=== PATIENT | male | born 1945 | race Caucasian/White ===

== ENCOUNTER → 2018-05-11 12:39 | Outpatient (CLI) | payer MEDICARE, OTHER, SELFPAY ==
--- NOTE | 2018-05-11 | DI.US.S_ITS ---
PROCEDURE: US CAROTID DOPPLER BI INDICATIONS: DIZZINESS TECHNIQUE: Color and pulse Doppler interrogation was performed of both carotid systems, with image documentation and velocity measurements. COMPARISON: [facility], , CAROTID ARTERY DOPPLER BILAT, 07/23/2011, 16:19. FINDINGS: Stenosis calculations are based on SRU (Society of Radiologists in Ultrasound) criteria. Right side: Brachial blood pressure: 122/83 mm Hg. Common carotid artery peak systolic velocity: 89 cm/sec. Internal carotid artery peak systolic velocity: 72 cm/sec. Internal carotid artery end diastolic velocity: 12 cm/sec. External carotid artery peak systolic velocity: 107 cm/sec. ICA/CCA peak systolic ratio: 20. Joshua scale imaging description: Minimal plaque. Percent internal carotid artery stenosis: Less than 50%. Vertebral artery: Flow direction is antegrade. Left side: Brachial blood pressure: 127/84 mm Hg. Common carotid artery peak systolic velocity: 92 cm/sec. Internal carotid artery peak systolic velocity: 72 cm/sec. Internal carotid artery end diastolic velocity: 28 cm/sec. External carotid artery peak systolic velocity: 83 cm/sec. ICA/CCA peak systolic ratio: 0.8. Joshua scale imaging description: Minimal plaque Percent internal carotid artery stenosis: Less than 50%. Vertebral artery: Flow direction is antegrade. IMPRESSION: Less than 50% bilateral internal carotid artery stenosis. Dictated by: Jesus Batres [facility] Interpreted: Aries Brantley MD on 05/11/2018 at 14:07 Approved by: Aries Brantley M.D. on 05/11/2018 at 15:16
== END ==
PROVIDERS: Family Provider Family Medicine; PCP Family Medicine; Visit Provider Family Medicine
DX: I65.23 Occlusion and stenosis of bilateral carotid arteries (principal); R42 Dizziness and giddiness
CPT/HCPCS: 93880

== ENCOUNTER → 2018-10-08 14:59 | Outpatient (REF) | payer MEDICARE, OTHER, SELFPAY ==
[2018-10-08 15:25] LABS: Influenza A and B by PCR Rapid Negative (Negative)
== END ==
LOC: LAB 14:59
PROVIDERS: Family Provider Family Medicine; PCP Family Medicine; Visit Provider Family Medicine
DX: R05 Cough (principal); J02.9 Acute pharyngitis, unspecified; R52 Pain, unspecified
CPT/HCPCS: 87400

== ENCOUNTER → 2019-01-04 17:44 | Outpatient (REF) | payer MEDICARE, OTHER, SELFPAY | LOC: LAB 17:44 | PROVIDERS: Family Provider Family Medicine; PCP Family Medicine; Visit Provider Dermatology | DX: L24.4 Irritant contact dermatitis due to drugs in contact with skin (principal) | CPT/HCPCS: 87070; 87075; 87077; 87186; 87205 ==

== ENCOUNTER → 2019-06-28 10:16 | Outpatient (CLI) | payer MEDICARE, OTHER, SELFPAY ==
--- NOTE | 2019-06-28 | DI.US.S_ITS ---
PROCEDURE: US RENAL COMPLETE INDICATIONS: GROSS HEMATURIA TECHNIQUE: Real-time scanning was performed of the kidneys and bladder, with image documentation. COMPARISON: [facility], CT, IVP (ABD & PEL WWO CONTRAST), 07/07/2017, 14:17. [facility], US, RENAL COMPLETE, 11/26/2007, 10:36. FINDINGS: Kidneys: Kidneys are normal in size. Right kidney measures 10.5 cm long; left kidney measures 11 cm long. Right renal cortical thickness is 1.6 cm; left renal cortical thickness is 1.7 cm. Renal cortical echotexture is normal. No hydronephrosis or nephrolithiasis. No suspicious solid mass lesions. Bladder: Pre-void bladder volume is 77 mL. Post-void residual is 3 mL. Pre-void images demonstrate no intraluminal masses or stones. On pre-void images, both ureteral jets are noted with color Doppler interrogation. (Of note, ureteral jets may not be detectable in up to 25% of cases due to insufficient differences in specific gravity between ureteral and bladder urine). Miscellaneous: No free pelvic fluid. The prostate gland is prominent, with an estimated volume of 113 cc. This study is limited by body habitus. IMPRESSION: No imaging explanation is found in the patient's presenting history of gross hematuria. For further evaluation of the patient's presenting history of hematuria, please consider a dedicated hematuria protocol CT without and with contrast (assuming that there is no contraindication). Dictated by: Marin Wray M.D. on 06/28/2019 at 11:18 Approved by: Marin Wray M.D. on 06/28/2019 at 11:19
== END ==
PROVIDERS: PCP Family Medicine; Visit Provider Family Medicine
DX: R31.0 Gross hematuria (principal)
CPT/HCPCS: 76770

== ENCOUNTER → 2019-09-30 09:37 | Outpatient (CLI) | payer MEDICARE, OTHER, SELFPAY ==
--- NOTE | 2019-09-30 | DI.RAD.S_ITS ---
PROCEDURE: XR CERVICAL SPINE 2V OR 3V INDICATIONS: neck pain TECHNIQUE: 3 view(s) of the cervical spine were acquired. COMPARISON: None. FINDINGS: Bones: On the lateral view, the cervicothoracic junction is adequately visualized and the alignment through this region is within normal limits. The vertebral body heights and prevertebral soft tissues are within normal limits throughout the cervical spine without evidence to suggest acute compression fracture. The bone mineralization is within normal limits. Straightening of the normal cervical lordosis is evident. There is grade 1 anterolisthesis of C3 on C4 by approximately 1-2 mm. Mild to moderate multilevel disc height loss and facet degenerative changes are identified throughout the cervical spine. Soft tissues: No prevertebral soft tissue swelling. The imaged overlying soft tissues of the neck are within normal limits. IMPRESSION: 1. Mild/moderate degenerative changes of the cervical spine. 2. Grade 1 spondylolisthesis at C3-4. Dictated by: Sarkis Pastrana M.D. on 09/30/2019 at 9:21 Approved by: Sarkis Pastrana M.D. on 09/30/2019 at 9:22
--- NOTE | 2019-09-30 | DI.RAD.S_ITS ---
PROCEDURE: XR SHOULDER LT MIN 2V INDICATIONS: shoulder pain TECHNIQUE: 3 views of the shoulder were acquired. COMPARISON: None. FINDINGS: Bones: Moderate to severe degenerative changes of the glenohumeral and acromioclavicular joints are present. Prominent for a marginal osteophyte involving the humeral head is noted. No acute fractures or dislocations are present. No suspicious osseous lesions are identified. Soft tissues: No suspicious soft tissue calcifications. IMPRESSION: [id number] degenerative changes of the left shoulder joints. Dictated by: Sarkis Pastrana M.D. on 09/30/2019 at 9:22 Approved by: Sarkis Pastrana M.D. on 09/30/2019 at 9:25
== END ==
PROVIDERS: PCP Family Medicine; Visit Provider Family Medicine
DX: M54.2 Cervicalgia (principal); M47.812 Spondylosis without myelopathy or radiculopathy, cervical region; M43.12 Spondylolisthesis, cervical region; M25.512 Pain in left shoulder; M25.712 Osteophyte, left shoulder
CPT/HCPCS: 72040; 73030

== ENCOUNTER → 2020-08-27 08:32 | Outpatient (CLI) | payer MEDICARE, OTHER, SELFPAY ==
[2020-08-28 09:46] LABS: COVID19 Sendout Not Detected (Not Detect)
== END ==
PROVIDERS: PCP Family Medicine; Visit Provider Nurse Practitioner
DX: Z11.59 Encounter for screening for other viral diseases (principal)
CPT/HCPCS: 87635

== ENCOUNTER 2020-08-30 07:20 | Day surgery (SDC) | payer OTHER, SELFPAY ==
--- NOTE | 2020-08-30 | PATH_ITS ---
[facility] Accession Number: [id number] . 01 Material submitted: . PART A: colon - DESCENDING COLON POLYP PART B: colon - SIGMOID POLYP PART C: rectum - RECTAL POLYP . 01 Clinical history: . SDC . 02 Diagnosis: A. Descending Colon Polyp, Biopsy: Hyperplastic polyp. . B. Sigmoid Colon Polyp, Biopsy: Hyperplastic polyp. . C. Rectal Polyp, Biopsy: Hyperplastic polyp. [facility] [place] 09/01/2020 1506 Local . 02 Electronically signed: . Barrington Burns MD, PhD, Pathologist NPI- [id number] . 01 Gross description: . A. Specimen A is received in formalin, labeled descending colon polyp and consists of a 0.3 x 0.3 x 0.2 cm alvarenga-pink fragment of soft tissue, which is entirely submitted in cassette A1. B. Specimen B is received in formalin, labeled sigmoid polyp and consists of two alvarenga-pink fragments of soft tissue, measuring 0.3 x 0.3 x 0.2 cm in aggregate. The specimen is entirely submitted in cassette B1. C. Specimen C is received in formalin, labeled rectal polyp and consists of two alvarenga fragments of soft tissue, measuring 0.4 x 0.3 x 0.2 cm in aggregate. The specimen is entirely submitted in cassette C1. ([id number]) /COUNTS INCLUDE 234 BEDS AT THE [facility] 08/31/2020 1521 Local . 02 Pathologist provided ICD-10: K63.5, K62.1 . 02 CPT . 125572, 900871, 585958 Performed at: [address] [facility] [address], [place], [place] [id number] MD Hao Jacobsen MD Phone: [phone] Performed at: 02 [facility] [id number] [place] [id number] MD Omayra Crespo MD Phone: [phone]
[2020-08-30 07:41] VITALS: BP 153/89; PULSE 88; RESP 16; TEMP 36.9; O2SAT 96
--- NOTE | 2020-08-30 07:49 | PM.HP.1 ---
History of Present Illness History of Present Illness Date Patient Seen: 08/30/20 Chief complaint: SDC Narrative: 75-year-old male with a history of colon cancer in 1988 who is here for surveillance. His last colonoscopy was in 2016 and recommendations were to perform 3 years after. Patient History Medical History (Updated 08/30/20 @ 07:09 by Donna Santiago RN) Diabetes (Acute) GERD (gastroesophageal reflux disease) (Acute) History of colon cancer (Acute ~1988) Hyperlipidemia (Acute) Surgical History (Updated 08/30/20 @ 07:09 by Donna Santiago RN) History of colon resection (Acute) History of colonoscopy with polypectomy (Acute) History of esophagogastroduodenoscopy (EGD) (Acute) History of total knee arthroplasty (Acute) Meds Home Medications and Allergies Home Medications Medication Instructions Recorded Confirmed Type CHOLECALCIFEROL (VITAMIN D) 1,000 iu PO DAILY #0 08/28/12 08/30/20 History MULTIVITAMIN (#ATOXIMETIN-B) 1 cap PO DAILY #0 08/28/12 History rosuvastatin [Crestor] 40 mg PO QDAY #0 08/28/12 08/30/20 History aspirin [Aspirin Low Dose] 81 mg PO DAILY 08/30/20 08/30/20 History azelastine 1 - 2 spray INTRANASAL QID PRN 08/30/20 08/30/20 History cholecalciferol (vitamin D3) 25 mcg PO DAILY 08/30/20 08/30/20 History [Vitamin D3] gabapentin 300 mg PO DAILY 08/30/20 08/30/20 History loratadine [Allerclear] 10 mg PO DAILY PRN 08/30/20 08/30/20 History metformin 500 mg PO BID 08/30/20 08/30/20 History omega 5-dyr-uvg-fish oil [Fish Oil] 1 cap PO DAILY 08/30/20 08/30/20 History pantoprazole 40 mg PO DAILY 08/30/20 08/30/20 History zolpidem 10 mg PO DAILY PRN 08/30/20 08/30/20 History Allergies Allergy/AdvReac Type Severity Reaction Status Date / Time codeine [CODEINE] Allergy Intermediate N&V Unverified 08/30/20 07:35 Exam Narrative Exam Narrative: General: Patient is obese, not in apparent distress Cardiovascular: Regular rate and rhythm, no murmurs, rubs, or gallops; no evidence of edema; no palpable abdominal aortic aneurysm Gastrointestinal: Normoactive bowel sounds, soft, nontender, nondistended, no rebound tenderness, no hepatosplenomegaly, no evidence of hernia Assessment & Plan Assessment & Plan narrative: 75-year-old male here for colon cancer surveillance. History of colon cancer in 1988 Regarding the procedure(s), the risks and potential complications, benefits, and alternatives (including not doing the procedure) were discussed with the patient. The risks include but are not limited to bleeding, splenic injury, infection, perforation which may require surgical intervention, missed lesions, and adverse reactions to sedative medicines. After a question and answer period, the patient agreed to proceed with the procedure(s) and gives informed consent.
[2020-08-30] MEDS: SODIUM CHLORIDE 0.9% 1,000 ML 70 ML IV (07:50)
[2020-08-30 07:51] VITALS: BMI 32.4
[2020-08-30] MEDS: MIDAZOLAM 5 MG/5 ML VIAL IV (08:15)
[2020-08-30] MEDS: fentaNYL 250 MCG/5 ML INJ IV (08:15)
--- NOTE | 2020-08-30 08:32 | PM.OP.ENDO ---
Operative Date/Time/Diagnoses Date of procedure: 08/30/20 Procedure Notes Procedure in detail: Surgeon: Man Dee MD Procedure: Colonoscopy with polypectomy Preoperative diagnosis: History of colon cancer in 1988 and colon polyps Postoperative diagnosis: End-to-side ileocolonic anastomosis, 3 colon polyp status post polypectomy, sigmoid diverticulosis, grade 2 internal hemorrhoids Medications: Conscious sedation using 4 mg IV of Midazolam and 100 mcg IV of Fentanyl Preanesthesia Assessment An H and P was performed/updated and the Px?s ASA class is 2. The procedure was discussed in detail with the patient. The potential risks and complications including infection, bleeding, missed lesions, perforation, need for surgery in case of perforation, prolonged hospital stay, and were explained. A brief question and answer period was allotted and once all questions were answered, informed consent was obtained. The patient was brought back to the procedure room and placed on standard monitoring. The patient?s vital signs were monitored continuously throughout the entire procedure. Prior to starting, a timeout was performed to confirm the patient?s identity, allergies, medications, and procedure. Procedure in detail The patient was placed in left lateral decubitus position and once adequate sedation was obtained a ROOPA was performed. The digital rectal examination did not reveal any palpable lesions. The tip of the colonoscope was placed in the anal canal and advanced without difficulty all the way to the ileocolonic anastomosis in the ascending colon. Intubation of the neoterminal ileum was performed which revealed no abnormalities. The colonoscope was then brought back to the anastomosis and careful examination of all ro of the colon was performed with irrigation of any residual stool. In the descending colon, a 2 mm sessile polyp was seen and removed by means of cold Jumbo forceps. Resection and retrieval was complete with minimal bleeding. In the sigmoid colon, a 2 mm sessile polyp was seen and removed by means of cold Jumbo forceps. Resection and retrieval was complete with minimal bleeding In the sigmoid colon, there was note of multiple medium-sized diverticula In the rectum, a 2 mm sessile polyp was seen and removed by means of cold Jumbo forceps. Resection and retrieval was complete with minimal bleeding Retroflexion was performed in the rectum which revealed grade 2 internal hemorrhoids. The patient tolerated the procedure well and will be brought back to the recovery area to be discharged once criteria are met. The prep was judged to be good and adequate to identify polyps less than 5 mm. The withdrawal time was 7 minutes. The total physician intraservice time was 12 minutes. Complications There were no complications and estimated blood loss was minimal. Recommendations: Resume previous diet Continue outPx medications Follow up pathology results Repeat colonoscopy in 3 or 5 years depending on pathology results. Call our office ([facility]) to schedule follow-up with An emergency contact number was given to the patient for any complications related to the procedure
[2020-08-30 08:35] VITALS: BP 129/84; PULSE 80; RESP 15; TEMP 36.4; O2SAT 95
[2020-08-30 08:40] VITALS: BP 126/80; PULSE 77; RESP 14; O2SAT 95
[2020-08-30 08:45] VITALS: BP 113/74; PULSE 87; RESP 14; TEMP 36.8; O2SAT 95
[2020-08-30 08:50] VITALS: BP 126/81; PULSE 86; RESP 14; TEMP 36.8; O2SAT 95
[2020-08-30 09:10] VITALS: BP 110/74; PULSE 70; RESP 14; TEMP 36.7; O2SAT 96
== END 2020-08-30 09:25 | disposition home or self-care (01) ==
PROVIDERS: PCP Family Medicine; Referring Provider Family Medicine; Visit Provider Internal Medicine Gastroenterology
PROC: 0DJD8ZZ Inspection of Lower Intestinal Tract, Via Natural or Artificial Opening Endoscopic (ICD-10-PCS; CPT 45378; principal; 2020-08-30 08:30)
DX: Z12.11 Encounter for screening for malignant neoplasm of colon (principal); Z85.038 Personal history of other malignant neoplasm of large intestine; Z86.010 Personal history of colon polyps; E11.9 Type 2 diabetes mellitus without complications; E78.5 Hyperlipidemia, unspecified; K21.9 Gastro-esophageal reflux disease without esophagitis; K64.1 Second degree hemorrhoids; K57.30 Diverticulosis of large intestine without perforation or abscess without bleeding; K63.5 Polyp of colon; K62.1 Rectal polyp
CPT/HCPCS: 45380; J2250; J3010

== ENCOUNTER → 2020-12-29 08:15 | Outpatient (CLI) | payer MEDICARE, SELFPAY ==
[2020-12-29] MEDS: COVID-19 VACC #1, MRNA(MOD) 100 MCG/0.5 ML VIAL IM (08:21)
== END ==
PROVIDERS: PCP Family Medicine; Visit Provider Internal Medicine
DX: Z23 Encounter for immunization (principal)
CPT/HCPCS: 0011A; 91301

== ENCOUNTER → 2021-01-26 08:03 | Outpatient (CLI) | payer MEDICARE, SELFPAY ==
[2021-01-26] MEDS: COVID-19 VACC #2, MRNA(MOD) 100 MCG/0.5 ML VIAL IM (08:09)
== END ==
PROVIDERS: PCP Family Medicine; Visit Provider Internal Medicine
DX: Z23 Encounter for immunization (principal)
CPT/HCPCS: 0012A; 91301

== ENCOUNTER → 2021-11-16 11:09 | Outpatient (CLI) | payer MEDICARE, OTHER, SELFPAY ==
--- NOTE | 2021-11-16 | DI.RAD.S_ITS ---
PROCEDURE: XR FOOT LT MIN 3V INDICATIONS: Pain in left foot TECHNIQUE: 3 views of the foot were acquired. COMPARISON: None. FINDINGS: Bones: No fractures or dislocations. Mild osteophytosis about the 1st interphalangeal and metatarsophalangeal joints. No suspicious bony lesions. Soft tissues: No tibiotalar joint effusion. Achilles tendon appears normal. IMPRESSION: No acute osseous abnormality. Dictated by: Bharathi Mckeon M.D. on 11/16/2021 at 13:32 Approved by: Bharathi Mckeon M.D. on 11/16/2021 at 13:34
== END ==
PROVIDERS: PCP Family Medicine; Referring Provider Family Medicine; Visit Provider Family Medicine
DX: M79.672 Pain in left foot (principal)
CPT/HCPCS: 73630

== ENCOUNTER 2022-06-24 15:19 | Emergency (ER) | payer OTHER, SELFPAY ==
[2022-06-24 15:21] VITALS: BP 120/65; PULSE 93; RESP 22; TEMP 37.1; O2SAT 96
--- NOTE | 2022-06-24 15:33 | DI.US.S_ITS ---
PROCEDURE: US PERIPH VENOUS LOW EXTREM LT INDICATIONS: r/o dvt TECHNIQUE: Real-time imaging, as well as color and pulse Doppler interrogation, were performed of the lower extremity deep veins from the inguinal ligament to the popliteal fossa. COMPARISON: [facility], US, US VENOUS LOWER EXTREMITY DOPPLER LEFT, 10/24/2021, 14:43. FINDINGS: Eccentric nonocclusive thrombus is seen at the popliteal vein with incomplete compressibility. Findings are seen in the location of the previously seen nonocclusive thrombus on the exam from 10/24/2021. The common femoral, and femoral veins are normally compressible, and free of intraluminal thrombus. Color and pulse Doppler demonstrate normal phasic intraluminal flow. There is normal augmentation response to distal compression maneuver. 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 Dictated by: Nico Cadet M.D. on 06/24/2022 at 16:35 Approved by: Ncio Cadet M.D. on 06/24/2022 at 16:58
--- NOTE | 2022-06-24 18:08 | ED_ITS ---
HPI - Extremity Injury (Lower) General Chief Complaint: Extremity Injury, Lower Stated Complaint: LEFT LEG SWELLING AND ANKLE Time Seen by Provider: 06/24/22 18:08 Source: patient Mode of arrival: Ambulatory History of Present Illness HPI Narrative: 77M nonsmoker with history of colon cancer and prior DVT on Xarelto presents for evaluation of left leg swelling and pain in the absence of injury. Patient states that over the past day or so he developed pain and swelling with some ecchymosis behind his left knee and into his calf and ankle. He is had prior DVTs in this location. He denies any dizziness, weakness or lightheadedness. He denies any chest pain or shortness of breath. He is had no fever or chills. Patient initially had a DVT in 1979 that was thought to be a consequence of surgeries and colon cancer. He had a recurrence a bit more than 1 year ago and [facility] He was on Xarelto 20 mg daily and then a few months ago, per their protocol, they decreased him to Xarelto 10 mg daily. Related Data Home Medications Medication Instructions Recorded Confirmed CHOLECALCIFEROL (VITAMIN D) 1,000 iu PO DAILY ##0 08/28/12 08/30/20 MULTIVITAMIN (#ATOXIMETIN-B) 1 cap PO DAILY ##0 08/28/12 08/30/20 rosuvastatin 40 mg tablet (Crestor) 40 mg PO QDAY ##0 08/28/12 08/30/20 aspirin 81 mg tablet,delayed 81 mg PO DAILY 08/30/20 08/30/20 release (Adriana Low Dose Aspirin) azelastine 205.5 mcg (0.15 %) 1 - 2 spray intranasal QID PRN 08/30/20 08/30/20 nasal spray Nasal Congestion cholecalciferol (vitamin D3) 25 25 mcg PO DAILY 08/30/20 08/30/20 mcg (1,000 unit) capsule (Vitamin D3) gabapentin 300 mg capsule 300 mg PO DAILY 08/30/20 08/30/20 loratadine 10 mg tablet 10 mg PO DAILY PRN seasonal 08/30/20 08/30/20 (Allerclear) allergies metformin 500 mg tablet 500 mg PO BID 08/30/20 08/30/20 omega 8-xgm-ewy-fish oil 1,000 mg 1 cap PO DAILY 08/30/20 08/30/20 (120 mg-180 mg) capsule (Fish Oil) pantoprazole 40 mg tablet,delayed 40 mg PO DAILY 08/30/20 08/30/20 release zolpidem 10 mg tablet 10 mg PO DAILY PRN Insomnia 08/30/20 08/30/20 Previous Rx's Medication Instructions Recorded rivaroxaban 20 mg tablet (Xarelto) 20 mg PO DAILY #30 tabs 06/24/22 Allergies Allergy/AdvReac Type Severity Reaction Status Date / Time codeine [CODEINE] Allergy Intermediate N&V Unverified 08/30/20 07:35 Review of Systems Review of Systems Narrative: GENERAL: Denies chills, fatigue, malaise, fever, sweats. HEENT: Denies sinus pain, ear pain, sore throat, difficulty swallowing, dizziness. RESPIRATORY: Denies dyspnea, cough, wheezing, hemoptysis, sputum. CARDIOVASCULAR: See HPI GASTROINTESTINAL: Denies nausea, vomiting, abdominal pain, diarrhea, constipation, melena. : Denies dysuria, frequency, incontinence, hematuria, urinary retention. MUSCULOSKELETAL: See HPI SKIN: Denies rash, skin lesions, or other NEUROLOGIC: Denies weakness, headache, numbness, change in speech, confusion, seizures, incoordination. PSYCHIATRIC: No concerning psychosocial issues. 12 point review of systems is negative except for those stated above Patient History Medical History Diabetes GERD (gastroesophageal reflux disease) History of colon cancer (~1988) History of stroke Hyperlipidemia Surgical History History of colon resection History of colonoscopy with polypectomy History of esophagogastroduodenoscopy (EGD) History of total knee arthroplasty Social History household members: spouse Smoking Status: Never smoker alcohol intake: current Smoking Status: Never smoker alcohol intake frequency: a few times a month Substance Use Type: does not use Exam Narrative Exam Narrative: GEN: AOx3 and in mild distress EYES: Pupils are equal, round, and reactive to light and accommodation. Extraoccular muscles are intact bilaterally. There is no subconjunctival hemorrhage or exudate. CHEST: Lungs are clear to auscultation bilaterally and free of wheezes, rales, or rhonchi. Heart rate is regular rhythm, there are no murmurs, clicks, rubs, or gallops. There is no chest wall tenderness. ABD: Abdomen is soft and nontender. There is no guarding or rebound. Bowel sounds are normal in all 4 quadrants. There is no mass or organomegaly. EXT: Left lower extremity pain, swelling and warmth with ecchymosis at his ankle sensation intact SKIN: Warm, pink, and dry. No erythema or rash Initial Vital Signs Initial Vital Signs: Vital Signs Temperature 98.7 F 06/24/22 15:21 Pulse Rate 93 H 06/24/22 15:21 Respiratory Rate 22 06/24/22 15:21 Blood Pressure 120/65 06/24/22 15:21 Pulse Oximetry 96 06/24/22 15:21 Oxygen Delivery Method 06/24/22 15:21 Course Orders Ordered: ED Orders 06/24/22 15:33 perip venous low extrem lt Stat Consultations Consultation #1: Discussed with on-call Oncology at [facility]. We sure the opinion that this is most likely not a failure of Xarelto as much as a recurrence due to suboptimal dosing. We agree that increasing his dose back to 20 mg daily as most appropriate with return precautions and close follow-up Vital Signs Vital signs: Vital Signs - 8 hr 06/24/22 15:21 Temperature 98.7 F Pulse Rate 93 H Respiratory Rate 22 Blood Pressure 120/65 Pulse Oximetry 96 Oxygen Delivery Method Room Air MDM - Extremity Injury (Lower) Imaging Data US - DVT: Radiologist's Impression: [address] [address] Ultrasound Report Signed Patient: Garland Plasencia MR#: [id number] : 1945 Acct:[id number] Age/Sex: 77 / M Date of Service: 06/24/22 Loc: ED Accession Number: [id number] ?? Procedure: US periph venous low extrem lt Ordering Provider: Paula Tao D.O. PROCEDURE:? US PERIPH VENOUS LOW EXTREM LT ? INDICATIONS:? r/o dvt ? TECHNIQUE:? Real-time imaging, as well as color and pulse Doppler interrogation, were performed of the lower extremity deep veins from the inguinal ligament to the popliteal fossa.? ? COMPARISON:? [facility], US, US VENOUS LOWER EXTREMITY DOPPLER LEFT, 10/24/2021, 14:43. ? FINDINGS:? Eccentric nonocclusive thrombus is seen at the popliteal vein with incomplete compressibility.? Findings are seen in the location of the previously seen nonocclusive thrombus on the exam from 10/24/2021. ? The common femoral, and femoral veins are normally compressible, and free of intraluminal thrombus.? Color and pulse Doppler demonstrate normal phasic intraluminal flow.? There is normal augmentation response to distal compression maneuver.? ? IMPRESSION:? 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 ? ? Dictated by: Nico Cadet M.D. on 06/24/2022 at 16:35 ? ? Approved by: Nico Cadet M.D. on 06/24/2022 at 16:58 ? MDM Narrative Medical decision making narrative: Patient with recurrence of left lower extremity DVT. He is had prior episodes, most recently he had Xarelto dosing cut in half a few months ago. Obviously, it is unclear if this is a breakthrough on appropriate anticoagulant or a reoccurrence secondary to have dosing. I discussed risks and benefits with patient we sure the opinion that returning to his prior full dosing is most appropriate, calls placed to hematology, however no returned yet. Return precautions discussed and questions answered to his apparent satisfaction Discharge Plan Departure Patient Disposition: Home Clinical Impression: DVT of leg (deep venous thrombosis) Instructions: DI for Deep Vein Thrombosis Activity Restrictions/Additional Instructions: *You have been diagnosed with [recurrence of left lower leg DVT] *What to do: *Please resume prior dosing of Xarelto to the full dose at 20 mg per day *Please follow up with your primary care provider in 2-3 days, call for an appointment. Let them know you were seen in the Emergency Department and that we ask that you be seen in follow up. We will electronically transmit a record of today's note if your PCP is in our system *If you do not have a primary care provider please contact the [facility] Resource line at [phone]. They will ask some questions about your medical history and help get you set up with a doctor in the community. *Return to Emergency Department if you should have any new, worsening or concerning symptoms, such as [fever greater than 101 F, shaking chills, worsening pain, persistent vomiting or other bothersome symptoms] Prescriptions: New Xarelto 20 mg tablet 20 mg PO DAILY Qty: 30 0RF Rx Instructions: must administer with evening meal No Action rosuvastatin [Crestor] 40 MG tablet 40 mg PO QDAY Qty: 0 CHOLECALCIFEROL (VITAMIN D) 1,000 iu PO DAILY Qty: 0 MULTIVITAMIN (#ATOXIMETIN-B) 1 cap PO DAILY Qty: 0 aspirin [Adriana Low Dose Aspirin] 81 mg Tablet,Delayed Release (Dr/Ec) 81 mg PO DAILY loratadine [Allerclear] 10 mg Tablet 10 mg PO DAILY PRN (Reason: seasonal allergies) metformin 500 mg Tablet 500 mg PO BID Label Comments: 250 mg 08/29/20 am pantoprazole 40 mg Tablet,Delayed Release (Dr/Ec) 40 mg PO DAILY gabapentin 300 mg Capsule 300 mg PO DAILY zolpidem 10 mg Tablet 10 mg PO DAILY PRN (Reason: Insomnia) cholecalciferol (vitamin D3) [Vitamin D3] 25 mcg (1,000 unit) Capsule 25 mcg PO DAILY azelastine 0.15 % (205.5 mcg) [place],Non-Aerosol 1 - 2 spray INTRANASAL QID PRN (Reason: Nasal Congestion) Label Comments: hasn't used in months (seasonal allergies) omega 0-diz-fln-fish oil [Fish Oil] 1,000 mg (120 mg-180 mg) Capsule 1 cap PO DAILY Referrals: Malou Ibrahim MD [Primary Care Provider] -
[2022-06-24 19:16] VITALS: BP 163/86; PULSE 68; RESP 18; O2SAT 99
== END 2022-06-24 19:16 | disposition home or self-care (01) ==
PROVIDERS: Emergency Provider Emergency Medicine; PCP Family Medicine
DX: I82.402 Acute embolism and thrombosis of unspecified deep veins of left lower extremity (principal)
CPT/HCPCS: 93971; 99283

== ENCOUNTER → 2022-08-17 10:28 | Outpatient (CLI) | payer MEDICARE, OTHER, SELFPAY ==
--- NOTE | 2022-08-17 10:31 | DI.MRI.S_ITS ---
PROCEDURE: MR SHOULDER RT WO CON INDICATIONS: Pain in right shoulder TECHNIQUE: Noncontrast oblique coronal T2 fast spin echo with fat saturation, oblique sagittal T1 spin echo and T2 fast spin echo with fat saturation, axial T1 spin echo and T2 fast spin echo with fat saturation through the shoulder. COMPARISON: [facility], CR, XR SHOULDER LT MIN 2V, 09/30/2019, 9:48. FINDINGS: Image quality: Excellent. Rotator cuff: There is partial-thickness tear and superimposed tendinosis of the supraspinatus, infraspinatus, and subscapularis tendons. Sagittal images demonstrate no rotator cuff muscle atrophy. Bones and bursae: No bone marrow contusions or fractures. Severe glenohumeral joint and moderate acromioclavicular joint degeneration. The acromion demonstrates conventional anatomy, without an os acromiale. Small glenohumeral joint effusion. There is small subcoracoid bursal fluid suggesting mild bursitis. Capsule and soft tissues: There is degenerative labral tear involving the anterior, posterior and inferior labrum. The long head of the biceps tendon demonstrates normal location and morphology. The rotator interval appears normal, without fibrosis. The coracohumeral ligament is normal in thickness. IMPRESSION: 1. Partial-thickness tear and tendinosis of the supraspinatus, infraspinatus and subscapularis tendons. No tendon retraction or rotator cuff muscle atrophy. 2. Severe glenohumeral joint degeneration and moderate acromioclavicular joint degeneration. 3. Small glenohumeral joint effusion. 4. Mild subcoracoid bursitis. 5. Degenerative labral tear. Dictated by: Noa Hull M.D. on 08/19/2022 at 8:58 Approved by: Noa Hull M.D. on 08/19/2022 at 9:05
== END ==
PROVIDERS: PCP Family Medicine; Referring Provider Family Medicine; Visit Provider Family Medicine
DX: M25.511 Pain in right shoulder (principal); M75.112 Incomplete rotator cuff tear or rupture of left shoulder, not specified as traumatic; M25.412 Effusion, left shoulder; M75.52 Bursitis of left shoulder; S43.402A Unspecified sprain of left shoulder joint, initial encounter
CPT/HCPCS: 73221

== ENCOUNTER → 2023-04-03 11:55 | Outpatient (CLI) | payer MEDICARE, OTHER, SELFPAY ==
--- NOTE | 2023-04-03 | DI.CT.S_ITS ---
PROCEDURE: CT ABDOMEN PELVIS W CON INDICATIONS: Abnormal levels of other serum enzymes TECHNIQUE: After the administration of oral and intravenous contrast, axial sections were acquired from the lung bases to the pubic symphysis. Coronal and sagittal reformats were performed. For radiation dose reduction, the following was used: automated exposure control, adjustment of mA and/or kV according to patient size. COMPARISON:[facility], CT, ABDOMEN/PELVIS WITH CONTRAST, 11/30/2008, 10:13. FINDINGS: Image quality: Excellent. Lung bases: Stable 5 mm solid nodule, right lower lobe (series 6, image 6). Heart: No significant findings. ABDOMEN: Liver: Unremarkable. Gallbladder: Cholelithiasis without wall thickening or adjacent fat stranding to suggest acute cholecystitis. Biliary ducts: Unremarkable. Pancreas: Unremarkable. Spleen: Unremarkable. Adrenal Glands: Unremarkable. Kidneys and Ureters: Unremarkable. Stomach and Bowel: Large hiatal hernia. Abnormal thickening of the greater curvature of the stomach, without associated adjacent adenopathy (series 2, image 22). Colonic diverticulosis without evidence of diverticulitis. Prior colectomy, with surgical anastomosis in the right mid abdomen. Peritoneum: No abnormal intraperitoneal fluid. No free air. Ventral Wall: No hernia. Abdominal Nodes: No retroperitoneal or mesenteric adenopathy by size criteria. Vessels: Aorta and inferior vena cava are normal in size. PELVIS: Pelvic Organs: Unremarkable. Bladder: Unremarkable. Pelvic Nodes: No enlarged lymph nodes. Miscellaneous: No inguinal hernias are seen. Bones: Unremarkable. IMPRESSION: Prior partial colectomy, with out evidence of local recurrence or rosemary disease. Abnormal thickening of the greater curvature of the stomach. Underlying mass or lymphoma not excluded. Recommend direct visualization, if not performed recently. Dictated by: Homar Herring M.D. on 04/03/2023 at 16:06 Approved by: Homar Herring M.D. on 04/03/2023 at 16:09
== END ==
PROVIDERS: PCP Family Medicine; Referring Provider Family Medicine; Visit Provider Family Medicine
DX: R74.8 Abnormal levels of other serum enzymes (principal); K80.20 Calculus of gallbladder without cholecystitis without obstruction; K44.9 Diaphragmatic hernia without obstruction or gangrene; K57.90 Diverticulosis of intestine, part unspecified, without perforation or abscess without bleeding; Z90.49 Acquired absence of other specified parts of digestive tract
CPT/HCPCS: 74177; Q9967

== ENCOUNTER → 2023-05-30 09:12 | Outpatient (CLI) | payer MEDICARE, OTHER, SELFPAY ==
--- NOTE | 2023-05-30 | DI.RAD.S_ITS ---
PROCEDURE: XR CHEST 2V INDICATIONS: acute cough TECHNIQUE: 2 views of the chest were acquired. COMPARISON: [facility], CT, CT ABDOMEN PELVIS W CON, 04/03/2023, 13:31. [facility], CR, CHEST 1 VIEW, 11/20/2015, 9:44. FINDINGS: Surgical changes and devices: None. Lungs and pleura: Lungs appear clear. No pleural effusions or pneumothorax. Mediastinum: Mediastinal contours are unchanged. Hiatal hernia. Heart size is within normal limits. Bones and chest wall: No suspicious bony abnormalities. Soft tissues appear unremarkable. IMPRESSION: No acute cardiopulmonary abnormality. Dictated by: Arturo Carrillo M.D. on 05/30/2023 at 10:04 Approved by: Arturo Carrillo M.D. on 05/30/2023 at 10:06
== END ==
PROVIDERS: PCP Family Medicine; Referring Provider Registered Nurse; Visit Provider Registered Nurse
DX: R05.1 Acute cough (principal); K44.9 Diaphragmatic hernia without obstruction or gangrene
CPT/HCPCS: 71046

== ENCOUNTER → 2023-07-28 09:08 | Outpatient (CLI) | payer MEDICARE, OTHER, SELFPAY ==
--- NOTE | 2023-07-28 | DI.RAD.S_ITS ---
PROCEDURE: FL UPPER GI SERIES INDICATIONS: Diaphragmatic hernia without obstruction or gangre COMPARISON: [facility], , UPPER GI AIR CONTRAST WITH KUB, 05/24/2016, 8:05. FINDINGS: Unremarkable double contrast views of the esophagus. Large paraesophageal hernia present with approximately 1/2 of the stomach intrathoracic. Intrathoracic portion of the stomach appears rotated organo-axially. At least moderate esophageal dysmotility present with tertiary contractions at the mid and lower esophagus and retropulsion of barium. No definite esophageal stricture identified. A 13 mm barium tablet passed promptly through the esophagus and gastroesophageal junction. Gastroesophageal reflux was not observed during the exam, including with provocative maneuvers. A duodenal diverticulum is present at the 3rd portion of the duodenum. IMPRESSION: 1. Large paraesophageal hernia. 2. At least moderate esophageal dysmotility. 3. No high-grade esophageal stricture identified. Dictated by: Nico Ventura M.D. on 07/28/2023 at 10:49 Approved by: Nico Ventura M.D. on 07/28/2023 at 11:04
== END ==
PROVIDERS: PCP Family Medicine; Referring Provider Surgery; Visit Provider Surgery
DX: K44.9 Diaphragmatic hernia without obstruction or gangrene (principal); K22.4 Dyskinesia of esophagus
CPT/HCPCS: 74240

== ENCOUNTER → 2023-09-23 09:03 | Outpatient (CLI) | payer MEDICARE, OTHER, SELFPAY ==
--- NOTE | 2023-09-23 | DI.ECHO.S_ITS ---
[facility] +---------+ [facility] +---------+ : : [address] : [place] : : : : [id number] : : : : Phone: [phone]+ Echocardiogram Report + + :Name: MICHELLE GOLDBERG Study Date: 09/23/2023 Height: 69 in : :[facility] ReadingLocation: Weight: 226 lb : : Gender: Male BSA: 2.2 m2 : :: 1945 Age: 78 yrs BP: 146/85 mmHg: :Reason For Study: Other Forms of Dyspnea : :Ordering Physician: NAOMI, : :MITCH Performed By: Sona Farley : :Referring: MITCH SALGADO : + + Interpretation Summary The left ventricle is normal in size. Left ventricular systolic function is borderline reduced. Left ventricular ejection fraction is estimated to be 45%. Diastolic parameters suggest probable normal left ventricular diastolic function and normal filling pressures. The right ventricle is normal size. Right ventricular systolic function is mildly reduced. The left atrium is moderately dilated. Right atrial size is normal. There is mild to moderate mitral regurgitation. There is no other significant valvular heart disease. The aortic root is normal size. Procedure: A two-dimensional transthoracic echocardiogram with color flow and Doppler was performed. The study quality was technically adequate. There is no prior echocardiogram noted for this patient. Left Ventricle: The left ventricle is normal in size. Left ventricular systolic function is borderline reduced. Left ventricular ejection fraction is estimated to be 45%. There are no obvious focal wall motion abnormalities noted but poor endocardial definition reduces the sensitivity for the detection of such. Diastolic parameters suggest probable normal left ventricular diastolic function and normal filling pressures. Right Ventricle: The right ventricle is normal size. Right ventricular systolic function is mildly reduced. Atria: The left atrium is moderately dilated. Right atrial size is normal. There is no Doppler evidence for an interatrial shunt. Mitral Valve: The mitral valve leaflets are slightly calcified. There is mild mitral annular calcification. There is no mitral valve stenosis. There is mild to moderate mitral regurgitation. Aortic Valve: The aortic valve is trileaflet. There is mild aortic valve sclerosis. There is no aortic valve stenosis. There is trace aortic regurgitation. Tricuspid Valve: The tricuspid valve is normal. There is no tricuspid stenosis. There is mild tricuspid regurgitation. Pulmonic Valve: The pulmonic valve is not well visualized. There is no pulmonic valvular stenosis. There is trace pulmonic regurgitation. There is no other significant valvular heart disease. Great Vessels: The aortic root is normal size. The ascending aorta is at the upper limits of normal in size. The pulmonary artery is normal size. The IVC is of normal diameter and collapses greater than 50% with a sniff. This suggests a low right atrial pressure of 3 mm Hg. Pericardium/ Pleura There is no pericardial effusion. There is no pleural effusion. MMode/2D Measurements & Calculations LVIDd: 5.4 cm LVOT diam: 1.9 cm LVIDs: 4.3 cm Ao root diam: 3.2 cm FS: 20.4 % asc Aorta Diam: 3.6 cm EPSS: 2.1 cm IVSd: 1.1 cm LVPWd: 1.0 cm LV rocha. diameter/BSA (cm/m^2): 2.5 LV sys. diameter/BSA (cm/m^2): 2.0 LA A2 area: 33.3 cm2 RA long axis: 5.2 cm LA A4 area: 23.9 cm2 RA area: 15.5 cm2 LA length (vol): 7.3 cm RA vol: 39.7 ml LA vol: 92.9 ml RA : 18.2 ml/m2 LA vol index: 42.7 ml/m2 RVD1 (basal): 3.0 cm LVLs ap4: 6.9 cm LVLd ap2: 6.8 cm TAPSE_phl: 1.6 cm LVLs ap2: 6.5 cm Doppler Measurements & Calculations Ao V2 max: 120.6 cm/sec LVOT Max Teto: 68.3 cm/sec Ao V2 mean: 85.4 cm/sec LV V1 max P.9 mmHg Ao max P.0 mmHg LV V1 VTI: 13.3 cm Ao mean P.4 mmHg TAMMI(I,D): 1.5 cm2 Ao V2 VTI: 25.0 cm TAMMI(V,D): 1.6 cm2 sev ratio: 0.53 TAMMI indexed to BSA (cm^2/m^2): 0.69 MV E max teto: 95.7 cm/sec TR max teto: 308.0 cm/sec MV A max teto: 52.0 cm/sec TR max P.2 mmHg MV E/A: 1.8 PA V2 max: 92.9 cm/sec Med Peak E' Teto: 7.1 cm/sec PA V2 mean: 63.3 cm/sec E/E' med: 13.5 PA mean P.0 mmHg Lat Peak E' Teto: 8.7 cm/sec PA pr(Accel): 18.2 mmHg E/E' lat: 11.0 E/e' average: 12.3 MV dec time: 0.16 sec SV(LVOT): 37.6 ml AV VR_phl: 0.56 TAMMI(VTI)/BSA_phl: 0.69 Reading Physician:02:52 PM
== END ==
PROVIDERS: PCP Family Medicine; Referring Provider Family Medicine; Visit Provider Family Medicine
DX: I08.3 Combined rheumatic disorders of mitral, aortic and tricuspid valves (principal); R06.09 Other forms of dyspnea
CPT/HCPCS: 78452; 93017; 93306; A9502; J2785

== ENCOUNTER → 2024-04-09 10:14 | Outpatient (CLI) | payer MEDICARE, OTHER, SELFPAY ==
--- NOTE | 2024-04-28 17:12 | DIAB.MNT ---
Initial Diabetes Medical Nutrition Therapy Assessment Name: Garland Plasencia Date: 04/09/24 Time: 6397-3049g Dx: Type II Diabetes Garland presents for initial visit. States he is here to review his diet at the recommendation of his cardiopulmonary field party manager. He is trying to lose wt per report. Diagnosed with DM x 10 years. Recent HgA1c <6.5% since 2021 per referral labs. over 5 years endorses 30# weight loss. Reports his main motivation for wt loss is for reducing stress on joints. Reports DM has been well managed. BMI of 31 with reported wt of 99kg. Also has hiatal hernia sx in May, which he worries about increased appetite after due to there then being more space in his stomach after sx. Diet Recall: 7-8a: 2 eggbites, 5 prunes or apple or half apple with prunes sn: handful of nuts 11a-1p: soup +/- roll OR split grilled cheese and soup with 3-4p: 1 pc fruit or 4-5c popcorn 7-8p: protein, carrots green beans, potatoes OR pasta with beef and veggies sn; nuts 48-70oz water, 1-2c decaf coffee Endorses eating out daily for lunch Anthropometrics: Ht: 5'10 Wt: 218-220# reported Physical Activity: Since Dec goint to cardio rehab. Gym 2 x per week. Self-Monitoring Blood Glucose: 3-5x per week FBG and all <100mg/dl. Diabetes Medications: 500mg Metformin BID Pertinent Labs: HgA1c: 6.4% 08/2022 6.3% 01/2023 6.4% 10/2023 Past Medical History: (Last Reviewed 04/15/23 @ 13:43 by Triny Quach MA) Diabetes GERD (gastroesophageal reflux disease) History of colon cancer (~1988) History of stroke Hyperlipidemia Nutrition Rx: Plate Method Nutrition Diagnosis: - Predicted excessive Na intake r/t eating out frequency aeb diet recall of daily lunch eating out Intervention: This participant was very receptive. Provided appropriate educational handouts. Discussed the following topics: Completed intake assessment. Discussed barriers to care. Heart health nutrition: Sodium Strategies for reducing sodium: reduced eating out, using spices for flavor Physical activity and LBM contribution to metabolism and impact of strength training on health of joints Created SMART goals for patient self-care and success. Weight expectations with age Goals: Try spice blends to add flavor to food Try to eat at home 2x per week or more Chat with field party manager about potential safe resistance training regimen Follow-up: [facility] follow-up prn. Overall, Garland's diet seems fairly balanced, incorporating fruits, veggies, and protein. May benefit from some safe resistance training ideas and focusing on LBM and reducing sodium intake. Encouraged him to call or message with questions or f/u needs prn. He agreed. Beverly Del Valle RDN, [facility] Certified Diabetes Care and Dynamicist P: [phone] Thank you for this referral
== END ==
PROVIDERS: PCP Family Medicine; Referring Provider Family Medicine
DX: E11.9 Type 2 diabetes mellitus without complications (principal); Z79.84 Long term (current) use of oral hypoglycemic drugs; Z71.3 Dietary counseling and surveillance
CPT/HCPCS: 97802

== ENCOUNTER 2024-04-19 14:15 | Outpatient (RCR) | payer MEDICARE, OTHER, SELFPAY | END 2024-04-19 16:00 | LOC: CAR 14:15 | PROVIDERS: PCP Family Medicine; Referring Provider Internal Medicine Cardiovascular Disease; Visit Provider Internal Medicine Cardiovascular Disease | DX: Z95.5 Presence of coronary angioplasty implant and graft (principal); I25.10 Atherosclerotic heart disease of native coronary artery without angina pectoris | CPT/HCPCS: 93798 ==

== ENCOUNTER 2024-06-08 18:38 | Emergency (ER) | payer MEDICARE, OTHER, SELFPAY ==
[2024-06-08] VITALS (9 sets, daily range): BP systolic 112–122; BP diastolic 56–60; PULSE 73–97; RESP 18–25; TEMP 36.3; O2SAT 54–97; BMI 31.8
--- NOTE | 2024-06-08 19:18 | EKG_ITS ---
[facility] [address] [place] [address] Test Date: 2024-06-08 Pat Name: Garland Plasencia Department: [facility] Room: Gender: Male Grain Inspector: SHIRLEY : 1945 Requested By: Order Number: [id number] Reading MD: Larry Abebe MD Measurements Intervals [place] Rate: 81 P: 13 FL: 166 QRS: -25 QRSD: 98 T: 48 QT: 396 QTc: 460 Interpretive Statements Normal sinus rhythm Incomplete right bundle branch block Minimal voltage criteria for LVH, may be normal variant ( R in aVL ) Nonspecific T wave abnormality Prolonged QT PROBABLY NO SIGNIFICANT CHANGE FROM PRIOR TRACING Electronically Signed On 06-09-2024 8:54:37 PDT by Larry Abebe MD
--- NOTE | 2024-06-08 19:37 | PC.NURSE ---
pt had surgery for hiatial hernia yesterday, stopped his xarelto as per orders for surgery, today started feeling weak on his right side, unable to lift right leg, difficulty lifting right arm but scleroscope tester normal face symmetrical speech normal, normal 7 hrs ago
[2024-06-08 19:49] LABS: Add Manual Diff / Slide Review NO; Basophils Absolute Auto 100 /uL (0-100); Basophils Percent Auto 0.4 % (0-2); Eosinophils Absolute Auto 0 /uL (0-450); Eosinophils Percent Auto 0.1 % (2-4); Hematocrit 38.4 % (41-53); Lymphocytes Absolute Auto 500 /uL (1100-4500); Lymphocytes Percent Auto 3.9 % (25-40); Mean Corpuscular HGB Conc 33.9 % (30-36); Mean Corpuscular Hemoglobin 30.6 PG (26-34); Mean Corpuscular Volume 90.1 fL (80-100); Monocytes Absolute Auto 700 /uL (0-900); Monocytes Percent Auto 4.9 % (3-14); Neutrophils Absolute Auto 12500 /uL (1500-7000); Neutrophils Percent Auto 90.7 % (50-75); Platelet Count 188 X10^3/uL (150-400); Red Blood Cell Count 4.26 X10^6/uL (4.5-5.9); Red Cell Distribution Width 14.8 % (11.6-14.8); White Blood Cell Count 13.8 X10^3/uL (4.5-11.0)
[2024-06-08 19:50] LABS: INR 1.6 (0.9-1.3)
[2024-06-08 19:53] LABS: PTT Partial Thromboplastin Tim 29 SECONDS (25.1-36.5)
[2024-06-08 19:54] LABS: Alanine Aminotransferase 20 IU/L (<50); Albumin 3.9 g/dL (3.5-5.0); Albumin Globulin Ratio 1.4 (1.0-2.8); Alkaline Phosphatase 52 U/L (38-126); Aspartate Aminotransferase 37 IU/L (17-59); BUN Creatinine Ratio 22.3 (6-22); Blood Urea Nitrogen 21 mg/dL (9-20); Calcium 8.5 mg/dL (8.4-10.2); Carbon Dioxide 27 mmol/L (22-32); Chloride 100 mmol/L (98-107); Creatine Kinase 388 U/L (55-170); Estimated Glomerular Filt Rate > 60 mL/min (>60); Globulin 2.8 g/dL (1.7-4.1); Glucose 155 mg/dL (80-110); HEMOLYSIS < 15 (0-50); Lipase 52 U/L (23-300); Magnesium 1.2 mg/dL (1.6-2.3); Potassium 3.8 mmol/L (3.4-5.1); Sodium 133 mmol/L (137-145); Total Protein 6.7 g/dL (6.3-8.2)
[2024-06-08 20:06] LABS: NT-proBNP (BNP-Adult 18+) 2950 pg/mL (<450); Troponin I < 0.012 ng/mL (0.01-0.034)
--- NOTE | 2024-06-08 21:32 | ED_ITS ---
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 Clifton and admitted for postoperative recovery with discharge home today. Patient notes that he noticed a little bit of discomfort last night in his right and increasing. He states it is very painful to try to lift his leg up off the bed or get out of the car. Patient has not had any swelling or redness that he is appreciated. He states he no pain in the calf or knee. He denies any weakness in the foot. He states standing is okay he was able to ambulate at home. He was discharged home from the hospital this morning. He was able to put his clothes on this morning in the hospital but also had his pain medication. Patient has not had anything to eat or any pain medication since discharge this morning. Patient is off of his Xarelto for his surgery. He states he did have an aspirin the day before the surgery. He denies any headache, no sudden vision changes, no new difficulties with speech. Daughter states it seems a little slower. No dysarthria, no facial droop. No chest pain or shortness of breath according to the patient. Daughter states he seemed short of breath. No nausea or vomiting. He has had a bowel movement today. He notes that he has had some difficulty with frequency and urgency in the past and what the bed this morning and here in the department while waiting for a bedside commode. He denies numbness tingling or weakness in his other extremities. He does have some difficulty lifting his shoulders as they both hurt a lot. Prior surgeries and colon surgery, right knee and left hip. Allergic to codeine. No tobacco, no alcohol, no recreational drugs. Dr. Ibrahim is his primary care physician. Daughters at bedside she does note he has some mild memory issues but has not had any changes in mentation. On Anticoagulants: Yes (Xarelto to start back up tomorrow.) Related Data Home Medications Medication Instructions Recorded Confirmed CHOLECALCIFEROL (VITAMIN D) 1,000 iu PO DAILY ##0 08/28/12 04/15/23 MULTIVITAMIN (#ATOXIMETIN-B) 1 cap PO DAILY ##0 08/28/12 04/15/23 azelastine 205.5 mcg (0.15 %) 1 - 2 spray intranasal QID PRN 08/30/20 04/15/23 nasal spray Nasal Congestion cholecalciferol (vitamin D3) 25 25 mcg PO DAILY 08/30/20 04/15/23 mcg (1,000 unit) capsule (Vitamin D3) metformin 500 mg tablet 500 mg PO BID 08/30/20 04/15/23 omega 2-mvt-usz-fish oil 1,000 mg 1 cap PO DAILY 08/30/20 04/15/23 (120 mg-180 mg) capsule (Fish Oil) zolpidem 10 mg tablet 10 mg PO DAILY PRN Insomnia 08/30/20 04/15/23 atorvastatin 40 mg tablet 40 mg PO DAILY 04/15/23 04/15/23 fluorouracil 5 % topical cream 1 applic topical BID 04/15/23 04/15/23 (Efudex) gabapentin 600 mg tablet 600 mg PO BEDTIME 04/15/23 04/15/23 losartan 25 mg tablet 25 mg PO DAILY 04/15/23 04/15/23 omeprazole 40 mg capsule,delayed 80 mg PO DAILY 04/15/23 04/15/23 release oxycodone 5 mg tablet 5 mg PO TID PRN 04/15/23 04/15/23 tamsulosin 0.4 mg capsule 0.4 mg PO DAILY 04/15/23 04/15/23 Previous Rx's Medication Instructions Recorded rivaroxaban 20 mg tablet (Xarelto) 20 mg PO DAILY #30 tabs 06/24/22 Allergies Allergy/AdvReac Type Severity Reaction Status Date / Time codeine [CODEINE] Allergy Intermediate N&V Unverified 04/15/23 13:42 Review of Systems Review of Systems ROS Unobtainable: All systems reviewed & are unremarkable except as noted in HPI and below Hematologic/Lymphatic On Anticoagulants: Yes (Xarelto to start back up tomorrow.) Patient History Medical History History of stroke Hyperlipidemia Diabetes History of colon cancer (~1988) GERD (gastroesophageal reflux disease) Surgical History History of total knee arthroplasty History of colonoscopy with polypectomy History of esophagogastroduodenoscopy (EGD) History of colon resection Family History Mother Heart disease Father Heart disease Social History marital status: household members: spouse lives independently: Yes occupational status: previously employed Smoking Status: Never smoker alcohol intake: current substance use type: does not use Smoking Status: Never smoker alcohol intake frequency: a few times a month Substance Use Type: does not use Exam Narrative Exam Narrative: GEN: well nourished, well appearing male, alert and oriented x 3, patient appears to be in mild distress. HEENT: Atraumatic, pupils are equal round reactive to light, extraocular movements are intact, nares are clear, there is no conjunctival pallor. Throat is clear without any exudates, erythema, tonsillar enlargement or uvular deviation, no facial droop. HEART: Regular rate and rhythm without murmur, clicks, rubs. Pulses are equal in upper and lower extremities LUNGS:Lungs clear to auscultation, no wheezes, rales, crackles, chest moves symmetrically ABD:bowel sounds normal, soft, non-tender, patient has laparoscopic incisions periumbilical and upper abdomen which are clean dry and intact. No guarding, rebound, rigidity, no masses noted, no hepatosplenomegaly, patient has a small amount of ecchymosis at his surgical sites. No large areas of ecchymosis. :No CVA tenderness MSCL: Non-tender, no muscle atrophy, muscles strength 5/5 upper, patient does have some weakness but also discomfort trying to lift right leg for straight leg raise but plantar flexion dorsiflexion bilateral feet. Patient had difficulty lifting leg off the bed but was able to stand without issue for bedside commode. NEURO:CN 2-12 intact, sensation normal, normal sensation bilateral upper extremities. Initial Vital Signs Initial Vital Signs: Vital Signs Temperature 97.4 F L 06/08/24 18:41 Pulse Rate 85 06/08/24 18:41 Respiratory Rate 24 06/08/24 18:41 Blood Pressure 112/59 L 06/08/24 18:41 Pulse Oximetry 97 06/08/24 18:41 Oxygen Delivery Method Room Air 06/08/24 18:41 Course Orders Ordered: ED Orders 06/08/24 21:50 US periph venous low extrem rt Stat XR femur RT min 2V Stat XR hip w pel if done RT 2V Stat Discontinued Medications Hydrocodone Bitart/Acetaminophen (Hydrocodone/Acet 5/325 Tablet) 1 tab PO NOW ONE Stop: 06/08/24 21:52 Last Admin: 06/08/24 22:16 Dose: 1 tab Documented By: NAS Vital Signs Vital signs: Vital Signs - 8 hr 06/08/24 22:16 06/08/24 22:30 06/08/24 23:00 Temperature Pulse Rate 79 97 H Respiratory Rate 23 18 Blood Pressure Pulse Oximetry 54 L 94 94 Oxygen Delivery Method 06/08/24 23:30 06/09/24 00:04 Temperature 98.6 F Pulse Rate 83 85 Respiratory Rate 19 18 Blood Pressure 112/58 L Pulse Oximetry 93 94 Oxygen Delivery Method Room Air MDM - Neuro Symptoms/Deficit Lab Data 06/08/24 19:30 06/08/24 19:30 Labs: Lab Results 06/08/24 Range/Units 19:30 WBC 13.8 H (4.5-11.0) X10^3/uL RBC 4.26 L (4.5-5.9) X10^6/uL Hgb 13.0 L (13.5-17.5) g/dL Hct 38.4 L (41-53) % MCV 90.1 (80-100) fL MCH 30.6 (26-34) PG MCHC 33.9 (30-36) % RDW 14.8 (11.6-14.8) % Plt Count 188 (150-400) X10^3/uL Neut % (Auto) 90.7 H (50-75) % Lymph % (Auto) 3.9 L (25-40) % [place] % (Auto) 4.9 (3-14) % Eos % (Auto) 0.1 L (2-4) % Baso % (Auto) 0.4 (0-2) % Neut # (Auto) 02270 H (5572-1222) /uL Lymph # (Auto) 500 L (9154-5740) /uL [place] # (Auto) 700 (0-900) /uL Eos # (Auto) 0 (0-450) /uL Baso # (Auto) 100 (0-100) /uL PT 18.0 H (9.4-12.5) SECONDS INR 1.6 H (0.9-1.3) APTT 29 (25.1-36.5) SECONDS Sodium 133 L (137-145) mmol/L Potassium 3.8 (3.4-5.1) mmol/L Chloride 100 (98-107) mmol/L Carbon Dioxide 27 (22-32) mmol/L BUN 21 H (9-20) mg/dL Creatinine 0.94 (0.66-1.25) mg/dL Estimated GFR > 60 (>60) mL/min BUN/Creatinine Ratio 22.3 H (6-22) Glucose 155 H (80-110) mg/dL Calcium 8.5 (8.4-10.2) mg/dL Magnesium 1.2 L (1.6-2.3) mg/dL Total Bilirubin 3.0 H (0.2-1.3) mg/dL AST 37 (17-59) IU/L ALT 20 (<50) IU/L Alkaline Phosphatase 52 (38-126) U/L Total Creatine Kinase 388 H (55-170) U/L Troponin I < 0.012 (0.01-0.034) ng/mL NT-Pro-B Natriuret Pep 2950 H (<450) pg/mL Total Protein 6.7 (6.3-8.2) g/dL Albumin 3.9 (3.5-5.0) g/dL Globulin 2.8 (1.7-4.1) g/dL Albumin/Globulin Ratio 1.4 (1.0-2.8) Lipase 52 (23-300) U/L ECG Data Attestation: I personally reviewed and interpreted this ECG as follows: Prior ECG tracings: available for review Interpretation: Sinus rhythm rate 81 NV 166 QRS of 98 QTC of 460, no acute ST elevation depression noted. Patient has prior from 11/20/2015 which appears similar. MDM Narrative Medical decision making narrative: 79-year-old male comes in with complaint of right lower extremity pain difficulty/weakness with lifting. He can stand on it. Had recent abdominal surgery on 06/07/2024 for laparoscopic PH repair with mesh, gastropexy me patient was kept overnight and discharged home this morning. He states he was able to ambulate at home today but had increased pain. He does have a history of DVTs he has been off his Xarelto because of his surgery. Records obtained from [facility]. Patient's labs show white count of 13, hemoglobin of 13 with platelets of 1 80s, INR is 1.6 normal renal function, normal electrolytes except for Mag of 1.2, bilirubin is 3 the patient is postop. CK is 388, troponins less than 0.012 with a BNP of 29 50 EKG does not show any acute changes. Patient does have some increased pain in his thigh which seems to actually be causing more of his weakness. Patient has been off of his pain medications since discharge from the hospital. Has been taking [place] regular lipid My suspicion for stroke is significantly lower based exam. Does have a history of DVTs we will obtain ultrasound although suspect this maybe musculoskeletal. No reported falls or trauma but right hip/femur x-ray was obtained. Hips and femur x-ray are negative. DVT ultrasound is negative. Patient still has quite a bit of pain with straight leg raise in his thigh but is able to ambulate in the department without assistance. He is felt appropriate for discharge home. Discussed with patient and family need for follow-up. Discharge Plan Departure Patient Disposition: Home Clinical Impression: Pain in right leg Activity Restrictions/Additional Instructions: I hope you continue to feel improved. Continue your medications as prescribed at [facility]. Increase your activity as tolerated if you continue to have right lower extremity discomfort please follow up with your primary care physician. Please return for any new or worsening changes, any new swelling, redness or skin changes, numbness tingling or weakness, fevers, new abdominal back or flank pain, persistent vomiting or other new or concerning changes. Prescriptions: No Action CHOLECALCIFEROL (VITAMIN D) 1,000 iu PO DAILY Qty: 0 MULTIVITAMIN (#ATOXIMETIN-B) 1 cap PO DAILY Qty: 0 omeprazole 40 mg capsule,delayed release(DR/EC) 80 mg PO DAILY Rx Instructions: 40MG TABLETS oxycodone 5 mg tablet 5 mg PO TID PRN gabapentin 600 mg tablet 600 mg PO BEDTIME fluorouracil [Efudex] 5 % cream 1 applic topical BID atorvastatin 40 mg tablet 40 mg PO DAILY losartan 25 mg tablet 25 mg PO DAILY tamsulosin 0.4 mg capsule 0.4 mg PO DAILY metformin 500 mg Tablet 500 mg PO BID Patient Comments: 250 mg 08/29/20 am zolpidem 10 mg Tablet 10 mg PO DAILY PRN (Reason: Insomnia) cholecalciferol (vitamin D3) [Vitamin D3] 25 mcg (1,000 unit) Capsule 25 mcg PO DAILY azelastine 0.15 % (205.5 mcg) [place],Non-Aerosol 1 - 2 spray INTRANASAL QID PRN (Reason: Nasal Congestion) Patient Comments: hasn't used in months (seasonal allergies) omega 4-tld-fks-fish oil [Fish Oil] 1,000 mg (120 mg-180 mg) Capsule 1 cap PO DAILY Xarelto 20 mg tablet 20 mg PO DAILY Qty: 30 0RF Rx Instructions: must administer with evening meal Referrals: Malou Ibrahim MD [Primary Care Provider] - Stand Alone Forms: Patient Portal/API
--- NOTE | 2024-06-08 21:44 | PC.NURSE ---
pt assisted to BSC, pt was unable to move leg off of bed but was able to stand on leg and turn around to sit on BSC, pt was also able to stand with minimal assistance from BSC and sit back onto bed but had some difficulty with moving leg back onto bed
--- NOTE | 2024-06-08 21:50 | DI.RAD.S_ITS ---
PROCEDURE: XR FEMUR RT MIN 2V INDICATIONS: hip /thigh pain, TECHNIQUE: 4 views of the femur were acquired. COMPARISON: None. FINDINGS: Bones: No fractures or dislocations. No suspicious bony lesions. Partially visualized right knee arthroplasty. Prosthetic elements appear to be in appropriate position. Soft tissues: No suspicious soft tissue calcifications or masses. IMPRESSION: No acute bony abnormality. Approved by: Bibiana Mercado M.D.,Ph.D. on 06/08/2024 at 22:41
--- NOTE | 2024-06-08 21:50 | DI.RAD.S_ITS ---
PROCEDURE: XR HIP W PEL IF DONE RT 2V INDICATIONS: hip /thigh pain, TECHNIQUE: AP pelvis with lateral view(s) of the 1 hip(s). COMPARISON: None. FINDINGS: Bones: No fractures or dislocations. Pelvic ring appears intact. No suspicious bony lesions. Status post left hip total arthroplasty. Soft tissues: The visualized bowel gas pattern is normal. No suspicious soft tissue calcifications. IMPRESSION: No acute bony abnormality. If symptoms persist with conservative management, consider cross-sectional imaging such as CT or MRI. Approved by: Bibiana Mercado M.D.,Ph.D. on 06/08/2024 at 22:40
--- NOTE | 2024-06-08 21:50 | DI.US.S_ITS ---
PROCEDURE: US PERIPH VENOUS LOW EXTREM RT INDICATIONS: right thigh pain, hx dvt's off thinners for surgery TECHNIQUE: Real-time imaging, as well as color and pulse Doppler interrogation, were performed of the lower extremity deep veins from the inguinal ligament to the popliteal fossa, with documentation of the visualized calf veins. COMPARISON: None. FINDINGS: The common femoral, femoral, and popliteal veins are normally compressible, and free of intraluminal thrombus. The peroneal vein is not well visualized. Color and pulse Doppler demonstrate normal phasic intraluminal flow. There is normal augmentation response to distal compression maneuver. IMPRESSION: No findings of lower extremity deep venous thrombosis. Peroneal vein is not well visualized. Approved by: Bibiana Mercado M.D.,Ph.D. on 06/08/2024 at 23:22
[2024-06-08] MEDS: HYDROCODONE/ACET 5/325 TABLET 1 TAB PO (22:16)
[2024-06-09 00:04] VITALS: BP 112/58; PULSE 85; RESP 18; TEMP 37; O2SAT 94
== END 2024-06-09 00:05 | disposition home or self-care (01) ==
PROVIDERS: Emergency Provider Emergency Medicine; PCP Family Medicine
DX: M79.604 Pain in right leg (principal); R53.1 Weakness; R07.9 Chest pain, unspecified; Z79.01 Long term (current) use of anticoagulants; Z98.890 Other specified postprocedural states
CPT/HCPCS: 36415; 73502; 73552; 80053; 82550; 83690; 83735; 83880; 84484; 85025; 85610; 85730; 93005; 93971; 99284

== ENCOUNTER → 2024-06-11 17:06 | Outpatient (CLI) | payer MEDICARE, OTHER, SELFPAY ==
--- NOTE | 2024-06-11 17:12 | DI.US.S_ITS ---
PROCEDURE: US PERIP VENOUS LOW EXTREM LT INDICATIONS: EDEMA TECHNIQUE: Real-time imaging, as well as color and pulse Doppler interrogation, were performed of the lower extremity deep veins from the inguinal ligament to the popliteal fossa, with documentation of the visualized calf veins. COMPARISON: [facility], , [place] [facility] VENOUS LOW EXTREM RT, 06/08/2024, 22:48. FINDINGS: The common femoral, femoral, and popliteal veins are normally compressible, and free of intraluminal thrombus. Calf veins are not well visualized due to overlying edema. Color and pulse Doppler demonstrate normal phasic intraluminal flow. There is normal augmentation response to distal compression maneuver. A heterogeneous fluid collection is seen anterior to the patella measuring 7.0 x 4.0 x 5.5 cm. IMPRESSION: 1. No findings of lower extremity deep venous thrombosis. 2. Large soft tissue hematoma anterior to the knee. Approved by: Nico Cadet M.D. on 06/11/2024 at 17:43
== END ==
PROVIDERS: PCP Family Medicine; Referring Provider Registered Nurse; Visit Provider Registered Nurse
DX: S80.02XA Contusion of left knee, initial encounter (principal); R22.42 Localized swelling, mass and lump, left lower limb
CPT/HCPCS: 93971

== ENCOUNTER → 2024-06-23 12:54 | Outpatient (CLI) | payer MEDICARE, OTHER, SELFPAY ==
--- NOTE | 2024-06-23 12:56 | DI.RAD.S_ITS ---
PROCEDURE: XR KNEE LT 3V INDICATIONS: HEMATOMA TECHNIQUE: 3 views of the knee were acquired. COMPARISON: [facility], , KNEE 3V RIGHT, 02/09/2014, 15:58. FINDINGS: Bones: No fractures or dislocations. No suspicious bony lesions. Moderate medial lateral compartmental joint space narrowing. Prepatellar soft tissue swelling Soft tissues: No joint effusion. No suspicious soft tissue calcifications. IMPRESSION: Prepatellar soft tissue swelling. No fracture. Osteoarthritis. Approved by: Danyel Fraser M.D. on 06/23/2024 at 23:27
== END ==
PROVIDERS: PCP Family Medicine; Referring Provider Family Medicine; Visit Provider Family Medicine
DX: S80.02XA Contusion of left knee, initial encounter (principal); M79.89 Other specified soft tissue disorders; M17.12 Unilateral primary osteoarthritis, left knee
CPT/HCPCS: 73562

== ENCOUNTER → 2024-06-29 09:00 | Outpatient (CLI) | payer MEDICARE, OTHER, SELFPAY ==
--- NOTE | 2024-06-29 09:02 | DI.ECHO.S_ITS ---
[facility]+ [facility] : : [id number] : [place] : : [id number] : : Phone: [phone] Echocardiogram Report + + :Name: MICHELLE GOLDBERG Study Date: 06/29/2024 Height: 70 in : :[facility] ReadingLocation: Weight: 209 lb : : Gender: Male BSA: 2.1 m2 : :: 1945 Age: 79 yrs BP: 120/69 mmHg: :Reason For Study: CAD : :Ordering Physician: IAN, : :JUVENTINO Performed By: Yaw Burnham : :Referring: UNSPECIFIED : + + Interpretation Summary 1. The left ventricular contractility is borderline. Estimated ejection fraction is 50 to 55% with no segmental wall motion abnormalities. No LVH. Grade 1 diastolic dysfunction. 2. The right ventricular contractility is normal. 3. The left atrium is mildly enlarged. All other cardiac chambers are of normal size. 4. Mild fibrocalcific changes noted on the mitral valve with no significant stenosis nor insufficiencies. 5. No other significant valvular abnormalities noted. 6. No obvious intracardiac shunts. 7. No obvious intracardiac masses nor thrombi. 8. No hemodynamically significant pericardial effusion. Conclusion: Low normal left ventricular systolic function with no significant valvular abnormalities.. Procedure: A two-dimensional transthoracic echocardiogram with color flow and Doppler was performed. The study quality was technically adequate. Comparison is made with the echocardiogram of 09/23/2023. The patient was in sinus rhythm with heart rates between 72-86 bpm during the exam. Left Ventricle: The left ventricle is normal in size and wall thickness. The ejection fraction is estimated to be 50-55%. Right Ventricle: The right ventricle is normal size. The right ventricular systolic function is normal. Atria: The left atrium is mildly dilated. Right atrial size is normal. The interatrial septum grossly appears intact with no obvious evidence for an atrial septal defect. Mitral Valve: The mitral valve is normal. There is no mitral valve stenosis. There is trace mitral regurgitation. Aortic Valve: The aortic valve is trileaflet. There is no aortic valve stenosis. There is trace aortic regurgitation. Tricuspid Valve: The tricuspid valve is normal. There is no tricuspid stenosis. There is mild tricuspid regurgitation. Pulmonic Valve: The pulmonic valve is not well visualized. There is no pulmonic valvular stenosis. There is trace pulmonic regurgitation. Great Vessels: The aortic root is normal size. The ascending aorta could not be visualized. The inferior vena cava was not visualized. Pericardium/ Pleura There is no pericardial effusion. There is no pleural effusion. MMode/2D Measurements & Calculations LVIDd: 5.6 cm LVOT diam: 2.3 cm LVIDs: 3.7 cm Ao root diam: 3.2 cm FS: 34.0 % Ao Arch Diam (Prox Trans): 2.5 cm IVSd: 1.0 cm LVPWd: 1.1 cm LV rocha. diameter/BSA (cm/m^2): 2.6 LV sys. diameter/BSA (cm/m^2): 1.7 LA A2 area: 24.3 cm2 RA long axis: 5.0 cm LA A4 area: 26.6 cm2 RA area: 15.7 cm2 LA length (vol): 6.9 cm RA vol: 42.0 ml LA vol: 79.1 ml RA : 19.8 ml/m2 LA vol index: 37.2 ml/m2 RVD1 (basal): 3.6 cm RVD2 (mid): 3.4 cm TAPSE: 2.2 cm Doppler Measurements & Calculations Ao V2 max: 153.9 cm/sec LVOT Max Teto: 99.6 cm/sec Ao V2 mean: 116.9 cm/sec LV V1 max P.0 mmHg Ao max P.5 mmHg LV V1 VTI: 20.8 cm Ao mean P.9 mmHg TAMMI(I,D): 2.8 cm2 Ao V2 VTI: 31.1 cm TAMMI(V,D): 2.7 cm2 sev ratio: 0.67 TAMMI indexed to BSA (cm^2/m^2): 1.3 MV E max teto: 69.8 cm/sec TR max teto: 275.6 cm/sec MV A max teto: 86.2 cm/sec TR max P.7 mmHg MV E/A: 0.81 PA V2 max: 128.0 cm/sec Med Peak E' Teto: 4.3 cm/sec PA V2 mean: 89.9 cm/sec E/E' med: 16.4 PA mean P.6 mmHg Lat Peak E' Teto: 6.0 cm/sec PA pr(Accel): 46.5 mmHg E/E' lat: 11.7 E/e' average: 14.0 MV dec time: 0.26 sec SV(LVOT): 86.1 ml Reading Physician:
== END ==
LOC: ECHO 09:02
PROVIDERS: PCP Family Medicine; Referring Provider Internal Medicine Cardiovascular Disease; Visit Provider Internal Medicine Cardiovascular Disease
DX: I07.1 Rheumatic tricuspid insufficiency (principal); I25.10 Atherosclerotic heart disease of native coronary artery without angina pectoris
CPT/HCPCS: 93306

== ENCOUNTER → 2024-10-27 09:24 | Outpatient (CLI) | payer MEDICARE, OTHER, SELFPAY ==
--- NOTE | 2024-10-27 09:27 | DI.RAD.S_ITS ---
PROCEDURE: [place] UPPER GI SERIES INDICATIONS: HIATAL HERNIA COMPARISON: [facility], , [place] UPPER GI SERIES, 07/28/2023, 9:25. FINDINGS: KUB: Preprocedural marine superintendent film demonstrates a normal bowel gas pattern. No suspicious abdominal calcifications. Visualized solid organ contours appear normal. Bony structures appear unremarkable. Esophagus: Esophageal mucosa is normal on air-contrast views. On single-contrast views, there is tertiary contractions noted in mid to distal esophageal wall muscles. No strictures, extrinsic mass effects, or diverticula. Previously noted hiatal hernia is no longer present consistent with clinical history of surgical repair. Mild gastroesophageal reflux is noted with contrast reflux to distal 1/3 of esophageal lumen. There is normal transit of a calibrated barium tablet through the esophagus. Stomach: The stomach is normally distensible, with normal rugal fold thickness. No mucosal masses or ulcers. Pylorus and duodenal bulb appear normal in morphology. Duodenal folds are normal in thickness as well. IMPRESSION: 1. Interval surgical repair of previously noted large hiatal hernia. No hiatal hernia is seen on the current study. Mild gastroesophageal reflux. 2. Tertiary contractions again noted in mid to distal esophageal wall muscles during this study suggestive of contractility disorder. No intraluminal filling defects or high-grade stricture. Dictated by: Zion Purvis M.D. on 10/27/2024 at 14:33 Approved by: Zion Purvis M.D. on 10/27/2024 at 14:35
== END ==
PROVIDERS: PCP Family Medicine; Referring Provider Surgery; Visit Provider Surgery
DX: K44.9 Diaphragmatic hernia without obstruction or gangrene (principal); K21.9 Gastro-esophageal reflux disease without esophagitis
CPT/HCPCS: 74240

== ENCOUNTER 2025-03-24 06:27 | Day surgery (SDC) | payer MEDICARE, OTHER, SELFPAY ==
[2025-03-24] MEDS: LACTATED RINGERS 1,000 ML 42 ML IV (07:37)
[2025-03-24 07:40] VITALS: BP 151/85; PULSE 84; RESP 16; TEMP 36.1; O2SAT 99
--- NOTE | 2025-03-24 07:44 | P.HP_ITS ---
History of Present Illness History of Present Illness Date Patient Seen: 03/24/25 Time Patient Seen: 07:44 Chief complaint: [facility] [place]ative: Garland is a 80-year-old man with a history of recent rectal bleeding and history of remote colon cancer and colon resection. See the prior office note from January for details. He states that his rectal bleeding has improved except for this morning had more. Bowel movements have been softer recently. [facility], [facility] Medical History (Updated 03/22/25 @ 11:28 by Maine Peralta RN) Anesthesia complication DVT (deep venous thrombosis) History of stroke Hyperlipidemia Diabetes History of colon cancer (~1988) GERD (gastroesophageal reflux disease) Surgical History (Updated 03/22/25 @ 11:06 by Maine Peralta RN) History of heart artery stent (~2023) History of total left hip replacement (~2009) History of repair of hiatal hernia (~05/2024) History of total knee arthroplasty (05/2012) History of colonoscopy with polypectomy History of esophagogastroduodenoscopy (EGD) History of colon resection Family History Mother Heart disease Father Heart disease Social History marital status: household members: spouse lives independently: Yes occupational status: previously employed Smoking Status: Never smoker alcohol intake: current substance use type: does not use Meds Home Medications and Allergies Home Medications Medication Instructions Recorded Confirmed Type MULTIVITAMIN (#ATOXIMETIN-B) 1 cap PO DAILY ##0 08/28/12 01/31/25 History cholecalciferol (vitamin D3) 25 25 mcg PO DAILY 08/30/20 01/31/25 History mcg (1,000 unit) capsule (Vitamin D3) metformin 500 mg tablet 500 mg PO BID 08/30/20 03/24/25 History omega 1-grm-pdg-fish oil 1,000 mg 1 cap PO DAILY 08/30/20 01/31/25 History (120 mg-180 mg) capsule (Fish Oil) zolpidem 10 mg tablet 10 mg PO DAILY PRN Insomnia 08/30/20 01/31/25 History rivaroxaban 20 mg tablet (Xarelto) 20 mg PO DAILY #30 tabs 06/24/22 01/31/25 Rx atorvastatin 40 mg tablet 40 mg PO DAILY 05/16/23 03/03/25 History fluorouracil 5 % topical cream 1 applic topical BID 04/15/23 01/31/25 History (Efudex) losartan 25 mg tablet 25 mg PO DAILY 04/15/23 03/24/25 History tamsulosin 0.4 mg capsule 0.4 mg PO DAILY 04/15/23 01/31/25 History aspirin 81 mg tablet,delayed 81 mg PO DAILY 01/31/25 03/24/25 History release diphenhydramine HCl 25 mg capsule 25 mg PO BEDTIME PRN 01/31/25 01/31/25 History (Benadryl) gabapentin 600 mg tablet 1,200 mg PO BEDTIME 01/31/25 01/31/25 History hydrocortisone 2.5 % topical cream 1 applic topical QID PRN 01/31/25 01/31/25 History loratadine 10 mg tablet (Allergy 10 mg PO DAILY 01/31/25 01/31/25 History Relief (loratadine)) magnesium oxide 420 mg tablet 420 mg PO DAILY 01/31/25 01/31/25 History nitroglycerin 0.4 mg sublingual 0.4 mg sublingual Q5-15M PRN 01/31/25 01/31/25 History tablet omeprazole 40 mg capsule,delayed 40 mg PO DAILY 01/31/25 01/31/25 History release sodium,potassium,mag sulfates 17.5 See Rx Instructions PO .COMPLEX 01/31/25 Rx gram-3.13 gram-1.6 gram oral soln #354 mL (Suprep Bowel Prep Kit) vibegron 75 mg tablet 75 mg PO DAILY 01/31/25 03/24/25 History Allergies Allergy/AdvReac Type Severity Reaction Status Date / Time codeine [CODEINE] AdvReac Intermediate N&V Verified 03/24/25 07:30 Exam Const General: No acute distress Assessment & Plan Assessment and plan (1) Rectal bleeding: Status: Acute Plan Colonoscopy Time-Based Coding :: [TOTAL MINUTES] spent with patient and on the chart (including review of chart, obtaining history, exam, reviewing outside data, placing orders, documenting exam and treatment plan, and counseling patient) on [DATE]. PROFEE Pattern Drafter Document charge(s): No
--- NOTE | 2025-03-24 08:07 | PM.OP.COLON ---
Operative Date/Time/Diagnoses Date of procedure: 03/24/25 Time of procedure: 08:08 Pre-op diagnosis: Rectal bleeding Post-op diagnosis: same Procedure & Clinicians Study performed: Colonoscopy Same procedure as scheduled: Yes Surgeon: Grant Lamar Procedure Notes Procedure in detail: Surgeon: Grant Lamar MD Anesthesia: Rudolph Pittman D.O. Procedure: The patient was brought to the endoscopy suite, placed in left lateral decubitus position. The patient was connected to monitoring devices. A time-out was performed. Sedation was administered. Once the patient was adequately sedated, a digital rectal exam was performed and was normal. The scope was then inserted and advanced to the cecum where the ileocolic anastomosis was identified. The scope was then slowly withdrawn over greater than 6 minutes. The mucosa was thoroughly inspected. No polyps or other abnormalities were found. The scope was retroflexed in the rectum. Moderate internal hemorrhoids were noted. The scope was straightened and removed. The patient was awakened and brought to recovery. Scope withdrawal time: 7 minutes Sedation time: 11 minutes EBL: 0 Findings: Moderate internal hemorrhoids Post-procedure Disposition: PACU
[2025-03-24 08:09] VITALS: BP 123/80; PULSE 74; RESP 27; TEMP 36.2; O2SAT 97
[2025-03-24 08:15] VITALS: BP 127/76; PULSE 82; RESP 16; O2SAT 97
[2025-03-24 08:23] VITALS: BP 146/98; PULSE 85; RESP 16; O2SAT 95
== END 2025-03-24 08:47 | disposition home or self-care (01) ==
PROVIDERS: PCP Family Medicine; Referring Provider Surgery; Visit Provider Surgery
PROC: 0DJD8ZZ Inspection of Lower Intestinal Tract, Via Natural or Artificial Opening Endoscopic (ICD-10-PCS; CPT 45378; principal; 2025-03-24 07:45)
DX: K62.5 Hemorrhage of anus and rectum (principal); K64.8 Other hemorrhoids
CPT/HCPCS: 45378; J2704